=== PATIENT | male | born 1945 | race Caucasian/White ===

== ENCOUNTER 2021-01-19 14:47 | Emergency (ER) | payer BC ==
[2021-01-19 14:58] VITALS: TEMP 98.5; BMI 25.8
[2021-01-19] MEDS ORDERED: SODIUM CHLORIDE 0.9% 500 ML INFUS.BAG IV ONE (16:19)
[2021-01-19 17:10] LABS: BASO % 0.8 % (0-2.0); EOS % 2.8 % (0-4.5); HEMATOCRIT 40.4 % (35.4-49); HEMOGLOBIN 13.7 GM/dL (11.7-16.9); LYMPH % 13.6 % (8-40); MCH 32.2 pg (25.7-33.7); MEAN CELL VOLUME 94.7 fl (80-96); MEAN PLT VOLUME 8.2 fl (7.5-11.1); MONO % 6.7 % (3.8-10.2); NEUT % 76.1 % (42.8-82.8); PLATELET COUNT 237 K/MM3 (134-434); RBC 4.27 M/mm3 (4.00-5.60); RDW 14.6 % (11.9-15.9)
[2021-01-19 17:15] LABS: CHLORIDE 108 mmol/L (98-107); POTASSIUM 4.6 mmol/L (3.5-5.1); SODIUM 142 mmol/L (136-145)
[2021-01-19 17:17] LABS: CALCIUM 9.1 mg/dL (8.5-10.1)
[2021-01-19 17:18] LABS: ALBUMIN 3.8 g/dl (3.4-5.0); ANION GAP 6 MMOL/L (8-16); BLOOD UREA NITROGEN 22.2 mg/dL (7-18); CO2 28 mmol/L (21-32); GLUCOSE,RANDOM 103 mg/dL (74-106)
[2021-01-19 17:21] LABS: CREATININE 1.5 mg/dL (0.55-1.3); SGOT/AST 12 U/L (15-37); SGPT/ALT 19 U/L (13-61)
[2021-01-19 17:22] LABS: BILIRUBIN,TOTAL 0.9 mg/dL (0.2-1)
[2021-01-19 17:23] LABS: TOT PROT 7.1 g/dl (6.4-8.2)
[2021-01-19 17:24] LABS: ALK PHOS 133 U/L (45-117)
[2021-01-19 20:39] VITALS: BP 121/68; PULSE 64
== END 2021-01-19 20:48 | disposition home or self-care (01) ==
LOC: JER 14:47
DX: R42 Dizziness and giddiness (principal); W19.XXXA Unspecified fall, initial encounter
CPT/HCPCS: 36415; 70450-TC; 72125-TC; 73502-TC-LT-FY; 80053; 82550; 84484; 85025; 93005; 93010; 99285-25

== ENCOUNTER 2024-07-11 06:11 | Inpatient (IN) | payer BC ==
[2024-07-11 08:17] LABS: BASO % 0.8 % (0-2.0); EOS % 0.9 % (0-4.5); HEMATOCRIT 42.8 % (35.4-49); HEMOGLOBIN 14.4 GM/dL (11.7-16.9); INR 0.96 (0.83-1.09); MCHC 33.7 g/dl (32.0-35.9); MEAN PLT VOLUME 8.2 fl (7.5-11.1); NEUT % 82.3 % (42.8-82.8); PLATELET COUNT 254 10^3/uL (134-434); RBC 4.51 M/mm3 (4.00-5.60); WHITE BLOOD COUNT 11.4 K/mm3 (4.0-10.0)
[2024-07-11 08:20] LABS: ACTIVATED PTT 32.2 SECONDS (25.2-36.5)
[2024-07-11 08:25] LABS: POTASSIUM 4.7 mmol/L (3.5-5.1)
[2024-07-11 08:27] LABS: ALBUMIN 3.7 g/dl (3.4-5.0); BLOOD UREA NITROGEN 28.3 mg/dL (7-18); CALCIUM 9.3 mg/dL (8.5-10.1)
[2024-07-11 08:30] LABS: CREATININE 1.7 mg/dL (0.55-1.3)
[2024-07-11 08:32] LABS: BILIRUBIN,TOTAL 0.9 mg/dL (0.2-1)
[2024-07-11 11:45] LABS: BASO % 0.7 % (0-2.0); EOS % 0.5 % (0-4.5); HEMATOCRIT 38.4 % (35.4-49); LYMPH % 18.3 % (8-40); MCH 31.9 pg (25.7-33.7); MCHC 33.9 g/dl (32.0-35.9); MEAN CELL VOLUME 94.4 fl (80-96); MEAN PLT VOLUME 7.9 fl (7.5-11.1); MONO % 8.2 % (3.8-10.2); NEUT % 72.3 % (42.8-82.8); PLATELET COUNT 263 10^3/uL (134-434); RBC 4.07 M/mm3 (4.00-5.60); RDW 14.7 % (11.9-15.9)
[2024-07-11] MEDS ORDERED: PANTOPRAZOLE 40 MG TABLET PO ONE (13:13)
[2024-07-11] MEDS ORDERED: CLOPIDOGREL BISULFATE 75 MG TABLET (FP) ONE (13:14)
[2024-07-11] MEDS: PANTOPRAZOLE 40 MG TABLET PO SCH (13:24)
[2024-07-11] MEDS: LACTATED RINGERS SOLUTION 1,000 ML/1,000 ML INFUS.BAG IV ONE (13:24)
[2024-07-11] MEDS: CLOPIDOGREL BISULFATE 75 MG TABLET (FP) PO SCH (13:24)
[2024-07-11 15:43] VITALS: BMI 27.1
[2024-07-11] MEDS: BISACODYL 5 MG TABLET.DR (FP) PO ONE (16:28)
[2024-07-11] MEDS: PEG 3350/NA SULF BICARB CL/KCL 4000 ML SOLN.RECON PO ONE (17:15)
[2024-07-11 19:11] LABS: HEMATOCRIT 33.5 % (35.4-49); HEMOGLOBIN 11.2 GM/dL (11.7-16.9); MCH 31.9 pg (25.7-33.7); MCHC 33.4 g/dl (32.0-35.9); MEAN CELL VOLUME 95.6 fl (80-96); PLATELET COUNT 250 10^3/uL (134-434); RBC 3.51 M/mm3 (4.00-5.60); RDW 14.7 % (11.9-15.9); WHITE BLOOD COUNT 14.3 K/mm3 (4.0-10.0)
[2024-07-11 19:22] LABS: POTASSIUM 4.7 mmol/L (3.5-5.1)
[2024-07-11 19:26] LABS: CALCIUM 8.5 mg/dL (8.5-10.1)
[2024-07-11 19:27] LABS: BLOOD UREA NITROGEN 30.2 mg/dL (7-18)
[2024-07-11 19:30] LABS: CREATININE 1.6 mg/dL (0.55-1.3)
[2024-07-11] MEDS: LACTATED RINGERS SOLUTION 1,000 ML/1,000 ML INFUS.BAG IV STA (21:21)
[2024-07-11] MEDS: ALLOPURINOL 300 MG TABLET (FP) PO SCH (21:24)
[2024-07-11] MEDS: ATORVASTATIN CA 20 MG TABLET (FP) PO SCH (22:03)
[2024-07-12] MEDS ORDERED: LACTATED RINGERS SOLUTION 1,000 ML/1,000 ML INFUS.BAG IV SCH (10:30)
[2024-07-12] MEDS: NIFEdipine E.R 60 MG TABLET PO SCH (13:05)
[2024-07-12] MEDS: SODIUM CHLORIDE 0.9% 500 ML INFUS.BAG IV ONE (13:06)
[2024-07-12 14:27] LABS: BASO % 0.3 % (0-2.0); EOS % 0.1 % (0-4.5); HEMATOCRIT 24.2 % (35.4-49); HEMOGLOBIN 8.1 GM/dL (11.7-16.9); MCH 31.4 pg (25.7-33.7); MCHC 33.5 g/dl (32.0-35.9); MEAN PLT VOLUME 8.1 fl (7.5-11.1); MONO % 7.9 % (3.8-10.2); NEUT % 80.7 % (42.8-82.8); PLATELET COUNT 202 10^3/uL (134-434); RBC 2.58 M/mm3 (4.00-5.60); RDW 14.8 % (11.9-15.9); WHITE BLOOD COUNT 15.1 K/mm3 (4.0-10.0)
[2024-07-12 14:33] LABS: INR 1.09 (0.83-1.09); PROTHROMBIN TIME (PATIENT) 12.3 SEC (9.7-13.0)
[2024-07-12 14:45] LABS: POTASSIUM 4.3 mmol/L (3.5-5.1)
[2024-07-12 14:49] LABS: BLOOD UREA NITROGEN 29.7 mg/dL (7-18); CALCIUM 7.8 mg/dL (8.5-10.1)
[2024-07-12 14:52] LABS: CREATININE 1.4 mg/dL (0.55-1.3)
[2024-07-12 15:08] LABS: ALBUMIN 2.9 g/dl (3.4-5.0)
[2024-07-13] MEDS: SODIUM CHLORIDE 1,000 ML IV SCH (03:43)
[2024-07-13 10:18] LABS: EOS % 1.7 % (0-4.5); HEMATOCRIT 28.4 % (35.4-49); HEMOGLOBIN 9.6 GM/dL (11.7-16.9); MCH 30.7 pg (25.7-33.7); MCHC 33.8 g/dl (32.0-35.9); MEAN CELL VOLUME 90.8 fl (80-96); MEAN PLT VOLUME 8.2 fl (7.5-11.1); MONO % 9.3 % (3.8-10.2); PLATELET COUNT 171 10^3/uL (134-434); RBC 3.13 M/mm3 (4.00-5.60); RDW 16.1 % (11.9-15.9); WHITE BLOOD COUNT 12.2 K/mm3 (4.0-10.0)
[2024-07-14 07:28] LABS: BASO % 0.9 % (0-2.0); HEMATOCRIT 27.1 % (35.4-49); HEMOGLOBIN 9.5 GM/dL (11.7-16.9); LYMPH % 11.3 % (8-40); MCH 31.8 pg (25.7-33.7); MCHC 35.2 g/dl (32.0-35.9); MEAN CELL VOLUME 90.4 fl (80-96); MEAN PLT VOLUME 7.9 fl (7.5-11.1); MONO % 8.1 % (3.8-10.2); NEUT % 76.7 % (42.8-82.8); PLATELET COUNT 170 10^3/uL (134-434); RDW 16.4 % (11.9-15.9)
[2024-07-14 07:35] LABS: POTASSIUM 4.2 mmol/L (3.5-5.1)
[2024-07-14 07:40] LABS: CALCIUM 8.1 mg/dL (8.5-10.1)
[2024-07-14 07:41] LABS: BLOOD UREA NITROGEN 16.3 mg/dL (7-18)
[2024-07-14 07:44] LABS: BILIRUBIN,TOTAL 1.2 mg/dL (0.2-1); CREATININE 1.2 mg/dL (0.55-1.3); TOT PROT 5.4 g/dl (6.4-8.2)
[2024-07-15 08:08] LABS: BASO % 0.8 % (0-2.0); EOS % 5.4 % (0-4.5); HEMATOCRIT 28.9 % (35.4-49); MCH 31.5 pg (25.7-33.7); MCHC 34.7 g/dl (32.0-35.9); MEAN CELL VOLUME 90.9 fl (80-96); MONO % 9.7 % (3.8-10.2); NEUT % 69.1 % (42.8-82.8); PLATELET COUNT 200 10^3/uL (134-434); RBC 3.18 M/mm3 (4.00-5.60); RDW 16.2 % (11.9-15.9); WHITE BLOOD COUNT 9.5 K/mm3 (4.0-10.0)
[2024-07-15 08:23] LABS: POTASSIUM 3.8 mmol/L (3.5-5.1)
[2024-07-15 08:25] LABS: ALBUMIN 3.1 g/dl (3.4-5.0); CALCIUM 8.1 mg/dL (8.5-10.1)
[2024-07-15 08:26] LABS: BLOOD UREA NITROGEN 18.6 mg/dL (7-18)
[2024-07-15 08:29] LABS: CREATININE 1.3 mg/dL (0.55-1.3)
[2024-07-15 08:30] LABS: BILIRUBIN,TOTAL 0.7 mg/dL (0.2-1); TOT PROT 5.7 g/dl (6.4-8.2)
[2024-07-15] MEDS: SODIUM CHLORIDE 500 ML IV STA (14:34)
[2024-07-15] MEDS: LABETALOL HCL 200 MG TABLET (FP) PO ONE (18:24)
[2024-07-16] MEDS: SODIUM CHLORIDE 500 ML IV STA (09:59)
[2024-07-16] MEDS: POLYETHYLENE GLYCOL (HEALTHYLAX) 3350 17 GM PACKET PO SCH (14:52)
[2024-07-17 06:04] VITALS: RESP 18
[2024-07-17 06:51] LABS: HEMATOCRIT 26.2 % (35.4-49); MCH 31.7 pg (25.7-33.7); MCHC 34.4 g/dl (32.0-35.9); MEAN CELL VOLUME 92.1 fl (80-96); MEAN PLT VOLUME 8.2 fl (7.5-11.1); PLATELET COUNT 201 10^3/uL (134-434); RBC 2.84 M/mm3 (4.00-5.60); RDW 16.2 % (11.9-15.9); WHITE BLOOD COUNT 9.6 K/mm3 (4.0-10.0)
[2024-07-17 07:10] LABS: POTASSIUM 4.8 mmol/L (3.5-5.1)
[2024-07-17 07:16] LABS: CALCIUM 8.2 mg/dL (8.5-10.1)
[2024-07-17 07:18] LABS: ALBUMIN 2.8 g/dl (3.4-5.0); MAGNESIUM 2.3 mg/dL (1.8-2.4)
[2024-07-17 07:20] LABS: CREATININE 1.3 mg/dL (0.55-1.3); PHOSPHOROUS 3.5 mg/dL (2.5-4.9)
[2024-07-17 07:21] LABS: BILIRUBIN,TOTAL 0.5 mg/dL (0.2-1); TOT PROT 5.2 g/dl (6.4-8.2)
[2024-07-17] MEDS: BISACODYL 5 MG TABLET.DR (FP) PO ONE (13:30)
[2024-07-17 18:37] VITALS: BP 156/60; PULSE 79; TEMP 98.7
== END 2024-07-17 18:45 | disposition home or self-care (01) | DRG 378 ==
LOC: JER 06:11 → JERBED 11:23 → J4S 14:57 → OBSVTOIN 07-12 10:09
PROVIDERS: ADMIT Internal Medicine; ATTEND Internal Medicine
PROC: 30233N1 Transfusion of Nonautologous Red Blood Cells into Peripheral Vein, Percutaneous Approach (ICD-10-PCS; 2024-07-12)
PROC: 0DJD8ZZ Inspection of Lower Intestinal Tract, Via Natural or Artificial Opening Endoscopic (ICD-10-PCS; principal; 2024-07-12 08:00)
DX: K57.31 Diverticulosis of large intestine without perforation or abscess with bleeding (principal); D62 Acute posthemorrhagic anemia; K52.9 Noninfective gastroenteritis and colitis, unspecified; E78.5 Hyperlipidemia, unspecified; I73.9 Peripheral vascular disease, unspecified; K64.8 Other hemorrhoids; I12.9 Hypertensive chronic kidney disease with stage 1 through stage 4 chronic kidney disease, or unspecified chronic kidney disease; N18.30 Chronic kidney disease, stage 3 unspecified; M10.9 Gout, unspecified; D72.829 Elevated white blood cell count, unspecified; I95.1 Orthostatic hypotension
CPT/HCPCS: 36415; 36430; 70450-TC; 74174-TC; 80048; 80053; 82962; 83735; 84100; 84484; 85025; 85027; 85610; 85730; 86850; 86900; 86901; 86922; 93005; 93010; 97116-GP; 99285-25; G0378; P9038; P9058; Q9967